=== PATIENT | female | born 1965 | race Caucasian/White ===

== ENCOUNTER 2016-12-28 15:24 | Emergency (ER) | payer MEDICAID, MEDICARE ==
[~2016-12-28] VITALS: Ht 165.1 cm; Wt 87.0 kg
[~2016-12-28 15:24] MED LIST: ASPI81TA82 PO; BENZ1TAB; CLOZ100T3; CLOZ200T PO; IBUP800T23 PO; LAMI200T PO; LAMO100; LORA1TAB PO; OXYB5TAB PO; PALI234P IM; PARO30TA PO; SENN-29 PO; TAB-TAB PO; VENTAER INH; [UNRECOGNIZED DRUG - OTHER]
[2016-12-28 15:28] VITALS: BP 120/66; PULSE 116; RESP 15; TEMP 98.4; O2SAT 98
[2016-12-28 16:00] VITALS: BP 118/69; PULSE 110; RESP 20; O2SAT 97
[2016-12-28] MEDS ORDERED: CLOZ200T PO (16:02)
[2016-12-28] MEDS ORDERED: LORA1TAB12 PO (16:02)
[2016-12-28] MEDS ORDERED: METF500T PO (16:11)
[2016-12-28] MEDS ORDERED: MOBI7.5T PO (16:11)
[2016-12-28] MEDS ORDERED: FISHCAP4 PO (16:11)
[2016-12-28] MEDS ORDERED: METO25TA3 PO (16:11)
[2016-12-28] MEDS ORDERED: VENTAER INH (16:11)
[2016-12-28] MEDS ORDERED: ROPI.5 PO (16:11)
[2016-12-28] MEDS ORDERED: VITA100021 SL (16:11)
[2016-12-28] MEDS ORDERED: VITA1000 PO (16:11)
[2016-12-28] MEDS ORDERED: VIIB40TA PO (16:11)
[2016-12-28] MEDS ORDERED: ROSU1TAB6 PO (16:15)
--- NOTE | 2016-12-28 17:31 | PD ---
HPI Chief Complaint: Psychiatric Symptoms Time Seen by Provider: 16:30 Travel History International Travel<30 days: No Contact w/Intl Traveler<30days: No Traveled to known affect area: No History of Present Illness HPI Patient is a 51-year-old female presenting to the emergency department voluntarily due to suicidal ideations. Patient states that she wants to burn herself with cigarettes. She states that she is off her psychiatric medications for the last week due to her labwork not being evaluated soon enough. It appears that the authorization cannot go through due to the labwork not being resulted in time. Patient states that she's been off of her medications for. She states that she feels jumpy, scared, she has had visual and auditory hallucinations. The voices are not telling her to harm herself or anyone else. He denies any homicidal ideations. She has no physical complaints at this time. PFSH Past Medical History Bipolar Disorder: Yes Neurologic: Yes Psychiatric: Yes (BIPLOAR DISORDER ) ?: Not : 3 Para: 3 Past Surgical History AICD: No Arteriovenous Shunt: No Hysterectomy: No Insulin Pump: No Joint Replacement: No Pacemaker: No Social History Alcohol Use: No Tobacco Use: Yes (1-04/19 ppd) Substance Use: No Allergies-Medications (Allergen,Severity, Reaction): Coded Allergies: haloperidol (Unverified Allergy, Severe, CAUSES THE JITTERS, 12/28/16) Reported Meds & Prescriptions Reported Meds & Active Scripts Active Reported Rosuvastatin (Rosuvastatin Calcium) 10 Mg Tab 10 Mg PO DAILY Metoprolol Tartrate 25 Mg Tab 25 Mg PO BID Vitamin B-12 (Cyanocobalamin) 1,000 Mcg Subl 2,000 Mcg SL DAILY Mobic (Meloxicam) 7.5 Mg Tab 7.5 Mg PO QID Fish Oil + D3 (Fish Oil-Cholecalciferol) 1,200-1,000 Mg-Unit Cap 1 Cap PO DAILY Ventolin Hfa 18 GM Inh (Albuterol Sulfate) 90 Mcg/Act Aer 2 Puff INH Q4-6H PRN Vitamin D-1000 (Cholecalciferol) 1,000 Unit Tab 1,000 Units PO BID Viibryd (Vilazodone) 40 Mg Tab 40 Mg PO DAILY Requip (Ropinirole HCl) 0.5 Mg Tab 0.5 Mg PO HS Lorazepam 1 Mg Tab 1 Mg PO HS PRN Clozapine 200 Mg Tab 300 Mg PO HS Aspir-81 (Aspirin) 81 Mg Tab 81 Mg PO DAILY Multivitamin (Multivitamins) 1 Tab Tab 1 Tab PO DAILY Invega Sustenna (Paliperidone Palmitate) 234 Mg/1.5 Ml Inj 234 Mg IM MONTHLY *FOR INTRAMUSCULAR USE ONLY* Oxybutynin Chloride Er (Oxybutynin Chloride) 5 Mg Tab 5 Mg PO BID Benztropine Mesylate 2 Mg Tab Review of Systems Except as stated in HPI: all other systems reviewed are Neg Psychiatric: Positive: Suicidal Ideations, Mood Disorder Physical Exam Narrative GENERAL: Overweight, well-developed, alert female. Resting comfortably in no acute distress. SKIN: Warm and dry. HEAD: Atraumatic. Normocephalic. EYES: Pupils equal and round. No scleral icterus. No injection or drainage. ENT: No nasal bleeding or discharge. Mucous membranes pink and moist. NECK: Trachea midline. No JVD. CARDIOVASCULAR: Regular rate and rhythm. RESPIRATORY: No accessory muscle use. Clear to auscultation. Breath sounds equal bilaterally. GASTROINTESTINAL: Abdomen soft, non-tender, nondistended. Hepatic and splenic margins not palpable. MUSCULOSKELETAL: Extremities without clubbing, cyanosis, or edema. No obvious deformities. NEUROLOGICAL: Awake and alert. No obvious cranial nerve deficits. Motor grossly within normal limits. Five out of 5 muscle strength in the arms and legs. Normal speech. PSYCHIATRIC: Appropriate mood and affect; insight and judgment normal. Data Data Last Documented VS Vital Signs Date Time Temp Pulse Resp B/P (MAP) Pulse Ox O2 Delivery O2 Flow Rate FiO2 12/28/16 18:38 91 18 132/60 (84) 95 Room Air 12/28/16 15:28 98.4 Orders Orders Complete Blood Count With Diff (12/28/16 16:29) Comprehensive Metabolic Panel (12/28/16 16:29) Urinalysis - C+S If Indicated (12/28/16 16:29) Psych Screen (12/28/16 16:29) Drug Screen, Random Urine (12/28/16 16:29) Diet Regular Basic (12/28/16 Dinner) Urine Culture (12/28/16 18:45) Potassium Chloride (Kcl) (12/28/16 20:45) Labs Laboratory Tests Test 12/28/16 18:45 12/28/16 19:05 Urine Color LIGHT-YELLOW Urine Turbidity HAZY Urine pH 5.5 Urine Specific [place] 1.004 Urine Protein NEG mg/dL Urine Glucose (UA) NEG mg/dL Urine Ketones NEG mg/dL Urine Occult Blood NEG Urine Nitrite NEG Urine Bilirubin NEG Urine Urobilinogen LESS THAN 2.0 MG/DL Urine Leukocyte Esterase NEG Urine WBC 1 /hpf Urine Squamous Epithelial Cells 11 /hpf Urine Transitional Epithelial Cells <1 /hpf Urine Bacteria MOD /hpf Microscopic Urinalysis Comment CULTURE INDICATED Urine Opiates Screen NEG Urine Barbiturates Screen NEG Urine Amphetamines Screen NEG Urine Benzodiazepines Screen NEG Urine Cocaine Screen NEG Urine Cannabinoids Screen NEG White Blood Count 9.8 TH/MM3 Red Blood Count 4.84 MIL/MM3 Hemoglobin 14.5 GM/DL Hematocrit 43.1 % Mean Corpuscular Volume 89.1 FL Mean Corpuscular Hemoglobin 30.0 PG Mean Corpuscular Hemoglobin Concent 33.6 % Red Cell Distribution Width 13.5 % Platelet Count 213 TH/MM3 Mean Platelet Volume 8.0 FL Neutrophils (%) (Auto) 61.1 % Lymphocytes (%) (Auto) 32.2 % Monocytes (%) (Auto) 6.2 % Eosinophils (%) (Auto) 0.1 % Basophils (%) (Auto) 0.4 % Neutrophils # (Auto) 6.0 TH/MM3 Lymphocytes # (Auto) 3.2 TH/MM3 Monocytes # (Auto) 0.6 TH/MM3 Eosinophils # (Auto) 0.0 TH/MM3 Basophils # (Auto) 0.0 TH/MM3 CBC Comment DIFF FINAL Differential Comment Blood Urea Nitrogen 5 MG/DL Creatinine 0.97 MG/DL Random Glucose 168 MG/DL Total Protein 7.3 GM/DL Albumin 3.4 GM/DL Calcium Level 9.2 MG/DL Alkaline Phosphatase 110 U/L Aspartate Amino Transf (AST/SGOT) 12 U/L Alanine Aminotransferase (ALT/SGPT) 21 U/L Total Bilirubin 0.3 MG/DL Sodium Level 141 MEQ/L Potassium Level 3.2 MEQ/L Chloride Level 108 MEQ/L Carbon Dioxide Level 23.4 MEQ/L Anion Gap 10 MEQ/L Estimat Glomerular Filtration Rate 61 ML/MIN MDM Medical Decision Making Medical Screen Exam Complete: Yes Emergency Medical Condition: Yes Interpretation(s) Laboratory Tests Test 12/28/16 18:45 12/28/16 19:05 Urine Color LIGHT-YELLOW Urine Turbidity HAZY Urine pH 5.5 Urine Specific [place] 1.004 Urine Protein NEG mg/dL Urine Glucose (UA) NEG mg/dL Urine Ketones NEG mg/dL Urine Occult Blood NEG Urine Nitrite NEG Urine Bilirubin NEG Urine Urobilinogen LESS THAN 2.0 MG/DL Urine Leukocyte Esterase NEG Urine WBC 1 /hpf Urine Squamous Epithelial Cells 11 /hpf Urine Transitional Epithelial Cells <1 /hpf Urine Bacteria MOD /hpf Microscopic Urinalysis Comment CULTURE INDICATED Urine Opiates Screen NEG Urine Barbiturates Screen NEG Urine Amphetamines Screen NEG Urine Benzodiazepines Screen NEG Urine Cocaine Screen NEG Urine Cannabinoids Screen NEG White Blood Count 9.8 TH/MM3 Red Blood Count 4.84 MIL/MM3 Hemoglobin 14.5 GM/DL Hematocrit 43.1 % Mean Corpuscular Volume 89.1 FL Mean Corpuscular Hemoglobin 30.0 PG Mean Corpuscular Hemoglobin Concent 33.6 % Red Cell Distribution Width 13.5 % Platelet Count 213 TH/MM3 Mean Platelet Volume 8.0 FL Neutrophils (%) (Auto) 61.1 % Lymphocytes (%) (Auto) 32.2 % Monocytes (%) (Auto) 6.2 % Eosinophils (%) (Auto) 0.1 % Basophils (%) (Auto) 0.4 % Neutrophils # (Auto) 6.0 TH/MM3 Lymphocytes # (Auto) 3.2 TH/MM3 Monocytes # (Auto) 0.6 TH/MM3 Eosinophils # (Auto) 0.0 TH/MM3 Basophils # (Auto) 0.0 TH/MM3 CBC Comment DIFF FINAL Differential Comment Blood Urea Nitrogen 5 MG/DL Creatinine 0.97 MG/DL Random Glucose 168 MG/DL Total Protein 7.3 GM/DL Albumin 3.4 GM/DL Calcium Level 9.2 MG/DL Alkaline Phosphatase 110 U/L Aspartate Amino Transf (AST/SGOT) 12 U/L Alanine Aminotransferase (ALT/SGPT) 21 U/L Total Bilirubin 0.3 MG/DL Sodium Level 141 MEQ/L Potassium Level 3.2 MEQ/L Chloride Level 108 MEQ/L Carbon Dioxide Level 23.4 MEQ/L Anion Gap 10 MEQ/L Estimat Glomerular Filtration Rate 61 ML/MIN Vital Signs Date Time Temp Pulse Resp B/P (MAP) Pulse Ox O2 Delivery O2 Flow Rate FiO2 12/28/16 16:00 110 20 118/69 (85) 97 Room Air 12/28/16 15:28 98.4 116 15 120/66 (69) 98 Differential Diagnosis Mood disorder versus substance abuse versus suicidal ideations versus other Narrative Course Patient is a 51-year-old female presented to them or department due to suicidal ideations secondary to auditory hallucinations. Patient has been compliant with psychiatric medications. She states that she does not want to harm herself but the voices are telling her to do so. Patient is appropriate, cooperative. Mental health screening discussed with the patient. Psychiatric screen ordered. Labs reviewed, and potassium 3.3, or replacement ordered. Urinalysis has reflux culture pending, patient has no urinary symptoms. We'll defer treatment for culture results. Patient is medically cleared for psychiatric evaluation at this time. Diagnosis Primary Impression: Medical clearance for psychiatric admission Additional Impression: Hypokalemia Condition: Stable Marjorie Beebe Dec 28, 2016 17:31
[2016-12-28 18:38] VITALS: BP 132/60; PULSE 91; RESP 18; O2SAT 95
[2016-12-28 20:09] LABS: BASOPHIL % 0.4 % (0.0-2.0); EOSINOPHIL % 0.1 % (0.0-4.0); HEMATOCRIT 43.1 % (35.0-46.0); HEMO FLAGS DIFF FINAL; LYMPH % 32.2 % (9.0-44.0); LYMPHOCYTE # 3.2 TH/MM3 (1.0-4.8); MEAN CELL VOLUME 89.1 FL (80.0-100.0); MEAN CORPUSCULAR HGB CONC 33.6 % (32.0-36.0); MONO % 6.2 % (0.0-8.0); NEUT % 61.1 % (16.0-70.0); PLATELET COUNT 213 TH/MM3 (150-450); RED BLOOD COUNT 4.84 MIL/MM3 (4.00-5.30); RED CELL DISTRIBUTION WIDTH 13.5 % (11.6-17.2); WHITE BLOOD COUNT 9.8 TH/MM3 (4.0-11.0)
[2016-12-28 20:30] LABS: ANION GAP 10 MEQ/L (5-15); AST (GOT) 12 U/L (15-37); BICARBONATE 23.4 MEQ/L (21.0-32.0); BLOOD UREA NITROGEN 5 MG/DL (7-18); CHLORIDE 108 MEQ/L (98-107); GLOMERULAR FILTRATION RATE 61 ML/MIN (>89); POTASSIUM 3.2 MEQ/L (3.5-5.1); SODIUM (NA) 141 MEQ/L (136-145)
[2016-12-28 20:31] LABS: ALT (GPT) 21 U/L (10-53)
[2016-12-28 20:31] LABS: BACTERIA, URINE MOD /hpf; BLOOD, URINE NEG (NEG); GLUCOSE,URINE NEG (NEG); KETONE, URINE NEG (NEG); NITRITE,URINE NEG (NEG); PH, URINE 5.5 (5.0-8.5); SQUAMOUS EPITHELIAL CELL URINE 11 /hpf (0-5); TRANSITIONAL EPI CELLS, URINE <1 /hpf; URINE COLOR LIGHT-YELLOW (YELLW/STRAW)
[2016-12-28 20:32] LABS: COMMENT (UR) CULTURE INDICATED; CULTURE IF INDICATED CULTURE INDICATED
[2016-12-28 20:34] LABS: ALKALINE PHOSPHATASE 110 U/L (45-117); TOTAL BILIRUBIN ADULT 0.3 MG/DL (0.2-1.0)
[2016-12-28] MEDS ORDERED: POTASSIUM CHLORIDE 20 MEQ CONTROLLED RELEASE TAB PO ONE (20:45)
[2016-12-28] MEDS ORDERED: cloZAPine 100 MG TAB PO ONE (22:00)
[2016-12-29 02:26] VITALS: BP 114/69; PULSE 101; RESP 18; O2SAT 97
[2016-12-29 11:07] VITALS: BP 152/71; PULSE 113; RESP 18; O2SAT 97
--- NOTE | 2016-12-29 11:57 | PD ---
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 Patient apparently has a significant history of schizophrenia and has been off her closet until recently due to a lack of lab work. (In order to be prescribed closet real, the patient needs periodic but frequent lab work.) Patient has been observed and evaluated overnight, on a voluntary status. This morning she is reporting no suicidal or homicidal ideation, plan or intent. She denies any psychotic symptoms and her cognition is intact. She is very pleasant and cooperative and calm. She is verbally tan for safety and she is competent to do so. She would like to go home and this physician finds inadequate reason to [place] act her or involuntarily hospitalize her. She can follow up at [facility] for her medicines. [facility] Past Medical History Bipolar Disorder: Yes Neurologic: Yes Psychiatric: Yes (BIPLOAR DISORDER ) ?: Not : 3 Para: 3 Past Surgical History AICD: No Arteriovenous Shunt: No Hysterectomy: No Insulin Pump: No Joint Replacement: No Pacemaker: No Psychiatric History Psychiatric History Hx Psychiatric Treatment: [facility] – [place], [place] History of Inpatient Treatment: Yes Guns or firearms in home: No Social History Hx Alcohol Use: No Hx Tobacco Use: Yes (1-1/2 ppd) Hx Substance Use: No Substance Use Type: Nicotine/Cigarettes Other Substances Used: Denied Hx of Substance Use Treatment: No Allergies-Medications (Allergen,Severity, Reaction): Coded Allergies: haloperidol (Unverified Allergy, Severe, CAUSES THE JITTERS, 12/28/16) Reported Meds & Prescriptions Reported Meds & Active Scripts Active Reported Rosuvastatin (Rosuvastatin Calcium) 10 Mg Tab 10 Mg PO DAILY Metoprolol Tartrate 25 Mg Tab 25 Mg PO BID Vitamin B-12 (Cyanocobalamin) 1,000 Mcg Subl 2,000 Mcg SL DAILY Mobic (Meloxicam) 7.5 Mg Tab 7.5 Mg PO QID Fish Oil + D3 (Fish Oil-Cholecalciferol) 1,200-1,000 Mg-Unit Cap 1 Cap PO DAILY Ventolin Hfa 18 GM Inh (Albuterol Sulfate) 90 Mcg/Act Aer 2 Puff INH Q4-6H PRN Vitamin D-1000 (Cholecalciferol) 1,000 Unit Tab 1,000 Units PO BID Viibryd (Vilazodone) 40 Mg Tab 40 Mg PO DAILY Requip (Ropinirole HCl) 0.5 Mg Tab 0.5 Mg PO HS Lorazepam 1 Mg Tab 1 Mg PO HS PRN Clozapine 200 Mg Tab 300 Mg PO HS Aspir-81 (Aspirin) 81 Mg Tab 81 Mg PO DAILY Multivitamin (Multivitamins) 1 Tab Tab 1 Tab PO DAILY Invega Sustenna (Paliperidone Palmitate) 234 Mg/1.5 Ml Inj 234 Mg IM MONTHLY *FOR INTRAMUSCULAR USE ONLY* Oxybutynin Chloride Er (Oxybutynin Chloride) 5 Mg Tab 5 Mg PO BID Benztropine Mesylate 2 Mg Tab Review of Systems Except as stated in HPI: all other systems reviewed are Neg Exam Alert: Yes [place]: Person, Place, Date, Situation Mood: Calm Affect: Appropriate Speech: Clear, Logical Eye Contact: Normal Memory Intact: Immediate, Recent, Remote Insight/Judgement Adequate MDM Medical Decision Making Medical Record Reviewed: Yes Assessment/Plan Patient interviewed at bedside with nurseZheng. Chart reviewed and case discussed with nurse. Patient has the ability and willingness to return to [facility] for medications. She is verbally tan for safety. She is not cognitively impaired or psychotic at this time. Therefore she is competent to make decisions on her own behalf. Once again, she denies any suicidal or homicidal ideation, plan or intent. Orders Orders Complete Blood Count With Diff (12/28/16 16:29) Comprehensive Metabolic Panel (12/28/16 16:29) Urinalysis - C+S If Indicated (12/28/16 16:29) Psych Screen (12/28/16 16:29) Drug Screen, Random Urine (12/28/16 16:29) Diet Regular Basic (12/28/16 Dinner) Urine Culture (12/28/16 18:45) Potassium Chloride (Kcl) (12/28/16 20:45) Clozapine (Clozaril) (12/28/16 22:00) Diet Regular Basic (12/29/16 Breakfast) Diet Regular Basic (12/29/16 Lunch) Results Vital Signs Date Time Temp Pulse Resp B/P (MAP) Pulse Ox O2 Delivery O2 Flow Rate FiO2 12/29/16 11:07 113 18 152/71 (98) 97 Room Air 12/29/16 02:26 101 18 114/69 (84) 97 Room Air 12/28/16 18:38 91 18 132/60 (84) 95 Room Air 12/28/16 16:00 110 20 118/69 (85) 97 Room Air 12/28/16 15:28 98.4 116 15 120/66 (84) 98 Laboratory Tests Test 12/28/16 18:45 12/28/16 19:05 Urine Color LIGHT-YELLOW Urine Turbidity HAZY Urine pH 5.5 Urine Specific [place] 1.004 Urine Protein NEG Urine Glucose (UA) NEG Urine Ketones NEG Urine Occult Blood NEG Urine Nitrite NEG Urine Bilirubin NEG Urine Urobilinogen LESS THAN 2.0 Urine Leukocyte Esterase NEG Urine WBC 1 Urine Squamous Epithelial Cells 11 Urine Transitional Epithelial Cells <1 Urine Bacteria MOD Microscopic Urinalysis Comment CULTURE INDICATED Urine Opiates Screen NEG Urine Barbiturates Screen NEG Urine Amphetamines Screen NEG Urine Benzodiazepines Screen NEG Urine Cocaine Screen NEG Urine Cannabinoids Screen NEG White Blood Count 9.8 Red Blood Count 4.84 Hemoglobin 14.5 Hematocrit 43.1 Mean Corpuscular Volume 89.1 Mean Corpuscular Hemoglobin 30.0 Mean Corpuscular Hemoglobin Concent 33.6 Red Cell Distribution Width 13.5 Platelet Count 213 Mean Platelet Volume 8.0 Neutrophils (%) (Auto) 61.1 Lymphocytes (%) (Auto) 32.2 Monocytes (%) (Auto) 6.2 Eosinophils (%) (Auto) 0.1 Basophils (%) (Auto) 0.4 Neutrophils # (Auto) 6.0 Lymphocytes # (Auto) 3.2 Monocytes # (Auto) 0.6 Eosinophils # (Auto) 0.0 Basophils # (Auto) 0.0 CBC Comment DIFF FINAL Differential Comment Blood Urea Nitrogen 5 Creatinine 0.97 Random Glucose 168 Total Protein 7.3 Albumin 3.4 Calcium Level 9.2 Alkaline Phosphatase 110 Aspartate Amino Transf (AST/SGOT) 12 Alanine Aminotransferase (ALT/SGPT) 21 Total Bilirubin 0.3 Sodium Level 141 Potassium Level 3.2 Chloride Level 108 Carbon Dioxide Level 23.4 Anion Gap 10 Estimat Glomerular Filtration Rate 61 Date/Time Source Procedure Growth Status 12/28/16 18:45 Urine Clean Catch Urine Culture Pending Received Diagnosis Primary Impression: Schizophrenia, paranoid type Condition: Stable Korey Gerardo MD Dec 29, 2016 11:57
--- NOTE | 2016-12-29 12:32 | PD ---
Physical Exam Date Seen by Provider: Dec 29, 2016 Narrative For full history of physical examination patient please see previous provider's notes. Data Data Last Documented VS Vital Signs Date Time Temp Pulse Resp B/P (MAP) Pulse Ox O2 Delivery O2 Flow Rate FiO2 12/29/16 11:07 113 18 152/71 (98) 97 Room Air 12/28/16 15:28 98.4 Orders Orders Complete Blood Count With Diff (12/28/16 16:29) Comprehensive Metabolic Panel (12/28/16 16:29) Urinalysis - C+S If Indicated (12/28/16 16:29) Psych Screen (12/28/16 16:29) Drug Screen, Random Urine (12/28/16 16:29) Diet Regular Basic (12/28/16 Dinner) Urine Culture (12/28/16 18:45) Potassium Chloride (Kcl) (12/28/16 20:45) Clozapine (Clozaril) (12/28/16 22:00) Diet Regular Basic (12/29/16 Breakfast) Diet Regular Basic (12/29/16 Lunch) Labs Laboratory Tests Test 12/28/16 18:45 12/28/16 19:05 Urine Color LIGHT-YELLOW Urine Turbidity HAZY Urine pH 5.5 Urine Specific [place] 1.004 Urine Protein NEG mg/dL Urine Glucose (UA) NEG mg/dL Urine Ketones NEG mg/dL Urine Occult Blood NEG Urine Nitrite NEG Urine Bilirubin NEG Urine Urobilinogen LESS THAN 2.0 MG/DL Urine Leukocyte Esterase NEG Urine WBC 1 /hpf Urine Squamous Epithelial Cells 11 /hpf Urine Transitional Epithelial Cells <1 /hpf Urine Bacteria MOD /hpf Microscopic Urinalysis Comment CULTURE INDICATED Urine Opiates Screen NEG Urine Barbiturates Screen NEG Urine Amphetamines Screen NEG Urine Benzodiazepines Screen NEG Urine Cocaine Screen NEG Urine Cannabinoids Screen NEG White Blood Count 9.8 TH/MM3 Red Blood Count 4.84 MIL/MM3 Hemoglobin 14.5 GM/DL Hematocrit 43.1 % Mean Corpuscular Volume 89.1 FL Mean Corpuscular Hemoglobin 30.0 PG Mean Corpuscular Hemoglobin Concent 33.6 % Red Cell Distribution Width 13.5 % Platelet Count 213 TH/MM3 Mean Platelet Volume 8.0 FL Neutrophils (%) (Auto) 61.1 % Lymphocytes (%) (Auto) 32.2 % Monocytes (%) (Auto) 6.2 % Eosinophils (%) (Auto) 0.1 % Basophils (%) (Auto) 0.4 % Neutrophils # (Auto) 6.0 TH/MM3 Lymphocytes # (Auto) 3.2 TH/MM3 Monocytes # (Auto) 0.6 TH/MM3 Eosinophils # (Auto) 0.0 TH/MM3 Basophils # (Auto) 0.0 TH/MM3 CBC Comment DIFF FINAL Differential Comment Blood Urea Nitrogen 5 MG/DL Creatinine 0.97 MG/DL Random Glucose 168 MG/DL Total Protein 7.3 GM/DL Albumin 3.4 GM/DL Calcium Level 9.2 MG/DL Alkaline Phosphatase 110 U/L Aspartate Amino Transf (AST/SGOT) 12 U/L Alanine Aminotransferase (ALT/SGPT) 21 U/L Total Bilirubin 0.3 MG/DL Sodium Level 141 MEQ/L Potassium Level 3.2 MEQ/L Chloride Level 108 MEQ/L Carbon Dioxide Level 23.4 MEQ/L Anion Gap 10 MEQ/L Estimat Glomerular Filtration Rate 61 ML/MIN MDM Medical Record Reviewed: Yes Supervised Visit with MARISA: No Narrative Course Patient presented for psychiatric evaluation secondary to being off of her medications. Patient was seen and evaluated, medically cleared. She was in seen and evaluated by psychiatrist. Patient's medications were resumed. She is to follow-up as outpatient. She was deemed safe for discharge by psychiatrist. Patient is stable for discharge. Diagnosis Primary Impression: Schizophrenia, paranoid type Referrals: [facility] (Out patient) call for appointment Patient Instructions: General Instructions, Psychotic Disorder (ED) Departure Forms: Tests/Procedures Disposition: 01 DISCHARGE HOME Condition: Stable Marjorie Beebe Dec 29, 2016 12:31
== END 2016-12-29 13:14 | disposition home or self-care (01) ==
LOC: NEPJ 15:24
DX: F20.0 Paranoid schizophrenia (principal); E87.6 Hypokalemia
CPT/HCPCS: 80053; 80307; 81001; 85025; 87086; 99284

== ENCOUNTER 2017-03-05 08:00 | Emergency (ER) | payer MEDICARE, MEDICAID ==
[~2017-03-05] VITALS: Ht 165.1 cm; Wt 89.5 kg
[~2017-03-05 08:00] MED LIST changes: -CLOZ100T3; +FISHCAP4 PO; -IBUP800T23 PO; -LAMI200T PO; -LAMO100; -LORA1TAB PO; +LORA1TAB12 PO; +METO25TA3 PO; +MOBI7.5T PO; -PARO30TA PO; +ROPI.5 PO; +ROSU1TAB6 PO; -SENN-29 PO; +VIIB40TA PO; +VITA1000 PO; +VITA100021 SL; -[UNRECOGNIZED DRUG - OTHER]
[2017-03-05 08:03] VITALS: BP 124/73; PULSE 127; RESP 18; TEMP 98.1; O2SAT 97
[2017-03-05] MEDS ORDERED: OLAN20TA PO (08:25)
[2017-03-05] MEDS ORDERED: PALI234P IM (08:25)
[2017-03-05] MEDS ORDERED: multivitamin (08:25)
[2017-03-05] MEDS ORDERED: TRAZ100T10 PO (08:25)
[2017-03-05] MEDS ORDERED: HYDR-3580 PO (08:25)
[2017-03-05] MEDS ORDERED: VIST25CA PO (08:30)
--- NOTE | 2017-03-05 08:30 | PD ---
HPI Chief Complaint: Anxiety Time Seen by Provider: 08:18 Travel History International Travel<30 days: No Contact w/Intl Traveler<30days: No Traveled to known affect area: No History of Present Illness HPI 52-year-old female complains of insomnia. Patient states that she has been unable to sleep for the last 8 days. Patient contacted her physician and was given prescription for trazodone. Patient states that she had persistent insomnia despite taking trazodone. Patient denies any headache. Patient denies any chest pain or shortness of breath. Patient denies abdominal pain. Patient denies any focal weakness or numbness of extremity. Patient has been taking oxycodone for chronic pain. Patient has history of schizophrenia, bipolar disorder. PFSH Past Medical History Hx Anticoagulant Therapy: No Asthma: No Autoimmune Disease: No Blood Disorders: No Bipolar Disorder: Yes Anxiety: No Depression: No Cancer: No Cardiovascular Problems: No Chemotherapy: No COPD: No Cerebrovascular Accident: No Diabetes: No Diminished Hearing: No Endocrine: No Gastrointestinal Disorders: No Genitourinary: No Headaches: No Immune Disorder: No Musculoskeletal: No Neurologic: Yes Psychiatric: Yes (BIPLOAR DISORDER ) Reproductive: No Respiratory: No Migraines: No Radiation Therapy: No Seizures: No Sleep Apnea: No ?: Not Menopausal: Yes : 3 Para: 3 Past Surgical History AICD: No Arteriovenous Shunt: No Hysterectomy: No Insulin Pump: No Joint Replacement: No Pacemaker: No Other Surgery: No Social History Alcohol Use: No Tobacco Use: Yes (1-/2 ppd) Substance Use: No Allergies-Medications (Allergen,Severity, Reaction): Coded Allergies: haloperidol (Unverified Allergy, Severe, CAUSES THE JITTERS, 12/28/16) Reported Meds & Prescriptions Reported Meds & Active Scripts Active Review of Systems General / Constitutional: No: Fever Eyes: No: Visual changes HENT: No: Headaches Cardiovascular: No: Chest Pain or Discomfort Respiratory: No: Shortness of Breath Gastrointestinal: No: Abdominal Pain Genitourinary: No: Dysuria Musculoskeletal: No: Pain Skin: No Rash Neurologic: No: Weakness Psychiatric: No: Depression Endocrine: No: Polydipsia Hematologic/Lymphatic: No: Easy Bruising Physical Exam Narrative GENERAL: Well-nourished, well-developed patient. SKIN: Focused skin assessment warm/dry. HEAD: Normocephalic. EYES: No scleral icterus. No injection or drainage. NECK: Supple, trachea midline. No JVD or lymphadenopathy. CARDIOVASCULAR: Regular rate and rhythm without murmurs, gallops, or rubs. RESPIRATORY: Breath sounds equal bilaterally. No accessory muscle use. GASTROINTESTINAL: Abdomen soft, non-tender, nondistended. MUSCULOSKELETAL: No cyanosis, or edema. BACK: Nontender without obvious deformity. No CVA tenderness. Neurologic exam normal. Data Data Last Documented VS Vital Signs Date Time Temp Pulse Resp B/P (MAP) Pulse Ox O2 Delivery O2 Flow Rate FiO2 03/05/17 08:03 98.1 127 18 124/73 (90) 97 Room Air MDM Medical Decision Making Medical Screen Exam Complete: Yes Emergency Medical Condition: Yes Differential Diagnosis Differential diagnosis including insomnia, anxiety, medication withdrawal. Narrative Course 52-year-old female with insomnia. History of schizophrenia and bipolar disorder. Patient's on trazodone. Diagnosis Primary Impression: Insomnia Qualified Codes: G47.00 - Insomnia, unspecified Patient Instructions: General Instructions Additional Instructions: Vistaril as needed. Follow-up with personal physician. Med/Other Pt SpecificInfo: Prescription(s) given Scripts Hydroxyzine Pamoate (Vistaril) 25 Mg Cap 25 MG PO TID Y for AGITATION, #21 CAP 0 Refills Prov: Juan Stover MD 03/05/17 Disposition: 01 DISCHARGE HOME Condition: Stable Juan Stover MD Mar 05, 2017 08:30
== END 2017-03-05 09:07 | disposition home or self-care (01) ==
LOC: NEPE 08:00
DX: G47.00 Insomnia, unspecified (principal); F17.200 Nicotine dependence, unspecified, uncomplicated; Z86.59 Personal history of other mental and behavioral disorders; Z87.39 Personal history of other diseases of the musculoskeletal system and connective tissue
CPT/HCPCS: 99283

== ENCOUNTER 2017-03-05 08:37 | Emergency (ER) | payer MEDICARE, MEDICAID ==
[~2017-03-05] VITALS: Ht 165.1 cm; Wt 90.0 kg
[~2017-03-05 08:37] MED LIST changes: +HYDR-3580 PO; +OLAN20TA PO; +TRAZ100T10 PO; +VIST25CA PO; +multivitamin
[2017-03-05 08:41] VITALS: BP 124/75; PULSE 128; RESP 18; TEMP 98; O2SAT 98
[2017-03-05 09:40] VITALS: PULSE 90; PULSE 92; RESP 16
--- NOTE | 2017-03-05 10:00 | PD ---
HPI . Insomnia Chief Complaint: Anxiety Time Seen by Provider: 09:49 Travel History International Travel<30 days: No Contact w/Intl Traveler<30days: No Traveled to known affect area: No History of Present Illness HPI 52-year-old female presents emergency department for evaluation of insomnia. Patient has extensive psychiatric history. Patient has seen her psychiatrist multiple times within the last couple weeks changing her medication. Patient was initially very upset that she was taken off benzodiazepines. She states she can't sleep. She was started on trazodone which she said is not helping. She first took trazodone last night and came to the emergency department this morning. Patient looks well-nourished well-developed without any dark pads underneath her eyes or bloodshot eyes. Patient is conversing fluently. Patient states she is sorry she told triage she was having delusions. She said she is not having any delusions or hallucinations but just needs help to sleep. Patient denies any chest pain, shortness breath or fevers, chills, malaise, nausea, vomiting, abdominal pain. Patient denies any homicidal suicidal ideation. Patient denies and is not experiencing any hallucinations or delusions. PFSH Past Medical History Hx Anticoagulant Therapy: No Asthma: No Autoimmune Disease: No Blood Disorders: No Bipolar Disorder: Yes Anxiety: Yes Depression: Yes Cancer: No Cardiovascular Problems: No Chemotherapy: No COPD: No Cerebrovascular Accident: No Diabetes: No Diminished Hearing: No Endocrine: No Gastrointestinal Disorders: No Genitourinary: No Headaches: No Immune Disorder: No Musculoskeletal: No Neurologic: Yes Psychiatric: Yes (schizoaffective d/o, bipolar d/o) Reproductive: No Respiratory: No Migraines: No Radiation Therapy: No Schizophrenia: Yes Seizures: No Sleep Apnea: No Tetanus Vaccination: Unknown Influenza Vaccination: No ?: Not LMP: 3 years ago Menopausal: Yes : 3 Para: 3 Past Surgical History Surgical History: No Previous Surgery AICD: No Arteriovenous Shunt: No Hysterectomy: No Insulin Pump: No Joint Replacement: No Pacemaker: No Other Surgery: No Social History Alcohol Use: No Tobacco Use: Yes (1 ppd cigarettes) Substance Use: No Allergies-Medications (Allergen,Severity, Reaction): Coded Allergies: haloperidol (Unverified Allergy, Severe, CAUSES THE JITTERS, 12/28/16) Reported Meds & Prescriptions Reported Meds & Active Scripts Active Vistaril (Hydroxyzine Pamoate) 25 Mg Cap 25 Mg PO TID PRN Reported Hydrocodone-Acetaminophen 7.5 Mg-325 Mg Tab 1 Tab PO Q4H PRN [multivitamin] Trazodone (Trazodone HCl) 100 Mg Tablet 100 Mg PO HS Invega Sustenna Inj (Paliperidone Palmitate) 234 Mg/1.5 Ml Inj 234 Mg IM Q28D Olanzapine 20 Mg Tab 20 Mg PO HS Review of Systems Except as stated in HPI: all other systems reviewed are Neg Physical Exam Narrative GENERAL: Well-nourished, well-developed 52-year-old female patient in no acute distress. Nontoxic-appearing. SKIN: Focused skin assessment warm/dry. HEAD: Normocephalic. Atraumatic. EYES: No scleral icterus. No injection or drainage. NECK: Supple, trachea midline. No JVD or lymphadenopathy. CARDIOVASCULAR: Regular rate and rhythm without murmurs, gallops, or rubs. RESPIRATORY: Breath sounds equal bilaterally. No accessory muscle use. GASTROINTESTINAL: Abdomen soft, non-tender, nondistended. MUSCULOSKELETAL: No cyanosis, or edema. BACK: Nontender without obvious deformity. No CVA tenderness. Data Data Last Documented VS Vital Signs Date Time Temp Pulse Resp B/P (MAP) Pulse Ox O2 Delivery O2 Flow Rate FiO2 03/05/17 09:40 90 16 03/05/17 08:41 98.0 98 Room Air MDM Medical Decision Making Medical Screen Exam Complete: Yes Emergency Medical Condition: Yes Differential Diagnosis Differential diagnoses include but not limited to insomnia, fatigue, restlessness, medication regimen change Narrative Course 52-year-old female presents emergency department for evaluation of insomnia. Patient's medication was recently changed by her psychiatrist. Patient took trazodone last night but was unable to achieve adequate sleep. Patient reported the emergency department this morning to obtain help for insomnia and she apologized for telling triage that she was having delusions and hallucinations stating that's not true but she just wants help. Patient denies any homicidal or suicidal ideations. Patient denies any physiological complaints outside of healing tired at this time. Patient states she is given a home take her trazodone again tonight and that the environment to sleep, making them dark and quiet allowing herself to try to get some rest. Patient states she will come back if she feels like the sleep is inadequate tonight or she will follow up with her psychiatrist. Patient will be discharged home at this time. Patient states she has a mental health counselor that is on-call 08 11 and she will call them if there is any other concerns. Diagnosis Primary Impression: Insomnia Qualified Codes: G47.00 - Insomnia, unspecified Referrals: Psychiatrist Patient Instructions: General Instructions, Insomnia (ED) Additional Instructions: Please return to emergency department if your symptoms return or worsen. Follow up with your psychiatrist Take medications as prescribed. Disposition: 01 DISCHARGE HOME Condition: Stable Danielle Ramos Alecia DIAMOND Mar 05, 2017 10:00
== END 2017-03-05 10:15 | disposition home or self-care (01) ==
LOC: NEPJ 08:37
DX: G47.00 Insomnia, unspecified (principal); F17.200 Nicotine dependence, unspecified, uncomplicated; Z86.59 Personal history of other mental and behavioral disorders; Z86.69 Personal history of other diseases of the nervous system and sense organs
CPT/HCPCS: 99282

== ENCOUNTER 2017-09-30 19:05 | Inpatient (IN) | payer MEDICARE, OTHER ==
[~2017-09-30 19:05] MED LIST changes: -ASPI81TA82 PO; -BENZ1TAB; -CLOZ200T PO; -FISHCAP4 PO; -LORA1TAB12 PO; -METO25TA3 PO; -MOBI7.5T PO; -OXYB5TAB PO; -ROPI.5 PO; -ROSU1TAB6 PO; -TAB-TAB PO; -VENTAER INH; -VIIB40TA PO; -VITA1000 PO; -VITA100021 SL
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
[2017-09-30] MEDS ORDERED: TETANUS/DIPHTHERIA TOXOID ADULT 0.5 ML VIAL IM ONE (19:30)
[2017-09-30 19:57] VITALS: BP 121/74; PULSE 115; RESP 18; TEMP 98.9; O2SAT 95
[2017-09-30 20:52] LABS: AUTOMATED NEUTROPHIL # 5.5 TH/MM3 (1.8-7.7); BASOPHIL % 0.4 % (0.0-2.0); EOSINOPHIL % 0.1 % (0.0-4.0); HEMATOCRIT 43.6 % (35.0-46.0); LYMPH % 39.8 % (9.0-44.0); LYMPHOCYTE # 4.1 TH/MM3 (1.0-4.8); MEAN CELL VOLUME 84.2 FL (80.0-100.0); MEAN CORPUSCULAR HGB CONC 34.4 % (32.0-36.0); MEAN PLATELET VOLUME 8.4 FL (7.0-11.0); MONO % 6.3 % (0.0-8.0); MONOCYTE # 0.7 TH/MM3 (0-0.9); NEUT % 53.4 % (16.0-70.0); PLATELET COUNT 248 TH/MM3 (150-450); RED BLOOD COUNT 5.18 MIL/MM3 (4.00-5.30); RED CELL DISTRIBUTION WIDTH 13.8 % (11.6-17.2); WHITE BLOOD COUNT 10.4 TH/MM3 (4.0-11.0)
[2017-09-30 21:13] LABS: ALBUMIN 3.4 GM/DL (3.4-5.0); AST (GOT) 17 U/L (15-37); BICARBONATE 23.5 MEQ/L (21.0-32.0); BLOOD UREA NITROGEN 9 MG/DL (7-18); CALCIUM 9.1 MG/DL (8.5-10.1); CHLORIDE 107 MEQ/L (98-107); CREATININE 1.07 MG/DL (0.50-1.00); GLOMERULAR FILTRATION RATE 54 ML/MIN (>89); GLUCOSE,RANDOM 140 MG/DL (74-106); SODIUM (NA) 142 MEQ/L (136-145)
[2017-09-30 21:14] LABS: ALT (GPT) 30 U/L (10-53)
[2017-09-30 21:24] LABS: ALKALINE PHOSPHATASE 176 U/L (45-117); TOTAL BILIRUBIN ADULT 0.4 MG/DL (0.2-1.0); TOTAL PROTEIN 7.7 GM/DL (6.4-8.2)
[2017-09-30 23:05] LABS: BACTERIA, URINE MANY /hpf; BILIRUBIN, URINE NEG (NEG); BLOOD, URINE NEG (NEG); GLUCOSE,URINE NEG (NEG); KETONE, URINE NEG (NEG); MUCUS URINE FEW /lpf (OCC); NITRITE,URINE POS (NEG); SQUAMOUS EPITHELIAL CELL URINE 3 /hpf (0-5); URINE COLOR Amber (YELLW/STRAW); URINE LEUKOCYTE ESTERASE MOD (NEG)
[2017-09-30 23:54] VITALS: BP 108/65; PULSE 107; RESP 17; TEMP 98.5; O2SAT 92
[2017-10-01 04:12] VITALS: BP 124/68; PULSE 105; RESP 18; TEMP 98.2; O2SAT 94
[2017-10-01] MEDS ORDERED: ROSU1TAB6 PO (05:39)
[2017-10-01] MEDS ORDERED: OXYB5TAB8 PO (05:39)
[2017-10-01] MEDS ORDERED: MELA5 PO (05:39)
[2017-10-01] MEDS ORDERED: VIIB40TA PO (05:39)
[2017-10-01] MEDS ORDERED: DOXE100C4 PO (05:39)
[2017-10-01] MEDS ORDERED: DOCU100C15 PO (05:39)
[2017-10-01] MEDS ORDERED: NITR1CAP36 PO (05:39)
[2017-10-01] MEDS ORDERED: PALI234P IM (05:42)
[2017-10-01] MEDS: NICOTINE 21 MG/24 HR PATCH T-DERMAL SCH (13:00)
[2017-10-01] MEDS ORDERED: LORazepam 2 MG/ML VIAL IM PRN ×2 (13:00)
[2017-10-01] MEDS: DOCUSATE SODIUM 100 MG CAP PO SCH (13:00)
[2017-10-01] MEDS ORDERED: ACETAMINOPHEN 325 MG TAB PO PRN (13:00)
[2017-10-01] MEDS ORDERED: ALUMINUM/MAGNESIUM/SIMETH 30 ML CUP PO PRN (13:00)
[2017-10-01] MEDS ORDERED: MAGNESIUM HYDROXIDE SUSP 30 ML CUP PO PRN (13:00)
[2017-10-01] MEDS ORDERED: PALIPERIDONE ER 3 MG TAB PO SCH (13:00)
[2017-10-01] MEDS ORDERED: LORazepam 0.5 MG TAB PO PRN (13:00)
[2017-10-01] MEDS: ATORVASTATIN 20 MG TAB PO SCH (13:00)
[2017-10-01] MEDS ORDERED: PALIPERIDONE PALMITATE 234 MG/1.5 ML SYRINGE IM SCH (13:00)
[2017-10-01] MEDS ORDERED: LORazepam 1 MG TAB PO PRN (13:00)
--- NOTE | 2017-10-01 13:17 | HHI.HP ---
Provisional Diagnosis Admission Date [place] I. Schizoaffective disorder, bipolar type [place] II. Deferred [place] III. UTI [place] IV. Multiple psychiatric hospitalizations, [place] V. 50 Certification of Person's Competence To Provide Express and Informed Consent I have personally examined Arabella Abdalla , a person being served at [facility] on, Oct 01, 2017 12:57. Express and informed consent means consent voluntarily given in writing, by a competent person, after sufficient explanation and disclosure of the subject matter involved to enable the person to make a knowing and willful decision without any element of force, fraud, deceit, duress, or other form of constraint or coercion. This person is 18 years of age or older, is not now known to be incompetent to consent to treatment with a guardian advocate, and does not have a health care surrogate or proxy currently making medical treatment decisions. I have found this person to be one of the following: [x] Competent to provide express and informed consent, as defined above, for voluntary admission to this facility and is competent to provide express and informed consent for treatment. He/she has the consistent capacity to make well reasoned, willful, and knowing decisions concerning his or her medical or mental health treatment. The person fully and consistently understands the purpose of the admission for examination/placement and is fully capable of personally exercising all rights assured under [place] Incompetent to provide express and informed consent to voluntary admission, and this is incompetent to provide express and informed consent to treatment. The person must be transferred to involuntary status and a petition for a guardian advocate filed with the Circuit Court. [] Refusing to provide express and informed consent to voluntary admission but is competent to provide express and informed consent for treatment. The person must be discharged or transferred to involuntary status. Form shall be completed within 24 hours of a person's arrival at the receiving facility and filed in the clinical record of each person: 1. Admitted on a voluntary basis 2. Permitted to provide express and informed consent to his/her own treatment 3. Allowed to transfer from involuntary to voluntary status 4. Prior to permitting a person to consent to his or her own treatment after having been previously found incompetent to consent to treatment. History of Present Illness Capacity: Has Capacity HPI The patient is 52-year-old woman, single, domiciled in [place], unemployed, supported by [facility], with psychiatric history of schizoaffective disorder, bipolar type, multiple psychiatric hospitalizations, last hospitalization was here at [place] in 2014, documentation review, outpatient care with Fact team, she is on Invega Sustenna 234 mg, date of last dose unknown , doxepin 100 mg at bedtime, melatonin 1 mg, 2 previous suicidal attempts 1 of them with a little lithium overdose that needed hemodialysis, no significant medical history, who presents under Blake act initiated by the [employer]. According to her paperwork the patient told someone at her assisted -living living facility that she wants to drowned in the ocean. She has been feeling this way for the past several days. She reports that she hears voices which tell her to kill herself. Symptoms are moderate, aggravated by auditory hallucinations with no relieving factors. She reports that she did burn her hand with cigarettes over the past few days but denies doing anything else to hurt herself. Her last tetanus vaccination is unknown. She denies any drug or alcohol use. She has no other complaints at this time. Collateral information from [facility], [address] [place] [id number] , was obtained. On my psychiatric evaluation I find a patient is calm, cooperative and who seems to be quite distressed. She says that she decided to come to the ER because for the last 2-3 days he has been hearing voices that has been increasing in intensity, severity, volume and frequency. She states that the voices are now very loud in her head "telling me to kill myself, to walk to the ocean and drawn myself". She says that she does not want to , she says that she was doing absolutely fine. She says that she was diagnosed with mental illness 22 years ago, she has been hospitalized over 20 times, but for the first time she is in a place that she like, with a medication regimen that is helping her, with the doctor "that is nice", "I was doing okay for the last years", but for no reason the voices returned. The patient reports that the voices are so loud that she "wanted to to put something in my Ears". She reports symptoms of depression, sadness, irritability, also anxiety in the context of the perceptual disturbances, but denies anhedonia, denies hopelessness, denies helplessness, denies worthlessness, denies suicidal and homicidal ideation, she denies visual and auditory hallucinations. The patient has a logical, coherent and relevant thought process, no paranoia, no loosening of associations, no ann, no disorganized behavior or speech are present during my evaluation. The patient denies the use of illegal drugs or alcohol. Review of Systems Constitutional: DENIES: Diaphoretic episodes, Fatigue, Fever, Weight gain, Weight loss, Chills, Dizziness, Change in appetite, Night Sweats Endocrine: DENIES: Abnorml menstrual pattern, Heat/cold intolerance, Polydipsia , Polyuria, Polyphagia Eyes: DENIES: Blurred vision, Diplopia, Eye inflammation, Eye pain, Vision loss , Photosensitivity, Double Vision Ears, nose, mouth, throat: DENIES: Tinnitus, Hearing loss, Vertigo, Nasal discharge, Oral lesions, Throat pain, Hoarseness, Ear Pain, Running Nose, Epistaxis, Sinus Pain, Toothache, Odynophagia Respiratory: DENIES: Apneas, Cough, Snoring, Wheezing, Hemoptysis, Sputum production, Shortness of breath Cardiovascular: DENIES: Chest pain, Palpitations, Syncope, Dyspnea on Exertion , PND, Lower Extremity Edema, Orthopnea, Claudication Gastrointestinal: DENIES: Abdominal pain, Black stools, Bloody stools, Constipation, Diarrhea, Nausea, Vomiting, Difficulty Swallowing, Anorexia Genitourinary: DENIES: Abnormal vaginal bleeding, Dysmenorrhea, Dyspareunia, Sexual dysfunction, Urinary frequency, Urinary incontinence, Urgency, Hematuria , Dysuria, Nocturia, Vaginal discharge Musculoskeletal: DENIES: Joint pain, Muscle aches, Stiffness, Joint Swelling, Back pain, Neck pain Integumentary: DENIES: Abnormal pigmentation, Pruritus, Rash, Nail changes, Breast masses, Breast skin changes, Nipple discharge Hematologic/lymphatic: DENIES: Bruising, Lymphadenopathy Immunologic/allergic: DENIES: Eczema, Urticaria Psychiatric: COMPLAINS OF: Depression, Hallucinations, DENIES: Anxiety, Confusion, Mood changes, Agitation, Suicidal Ideation, Homicidal Ideation, Delusions Substance Abuse History Drugs/Alcohol past 12 months She denies the use of drugs and alcohol Past Family Social History Coded Allergies: haloperidol (Unverified Allergy, Severe, CAUSES [employer]TER[employer], 12/28/16) Reported Medications Paliperidone Palmitate Inj (Invega Sustenna Inj) 234 Mg/1.5 Ml Inj, 234 MG IM Q28D for Schizophrenia, #1 VIAL 0 Refills 10/01/17 Docusate Sodium (Docusate Sodium) 100 Mg Cap, 100 MG PO DAILY for Prevent Constipation, #60 CAP 0 Refills 10/01/17 Doxepin (Doxepin) 100 Mg Cap, 100 MG PO HS, #30 CAP 0 Refills 10/01/17 Nitrofurantoin Macrocrystal (Nitrofurantoin Macrocrystal) 100 Mg Cap, 100 MG PO BID for Infection, CAP 0 Refills 10/01/17 Rosuvastatin (Rosuvastatin) 10 Mg Tab, 10 MG PO DAILY for Cholesterol Management , TAB 0 Refills 10/01/17 Oxybutynin (Ditropan) 5 Mg Tab, 10 MG PO BID for Urinary Symptom Managemen, #60 TAB 0 Refills 10/01/17 Melatonin (Melatonin) 5 Mg Tab, 1 MG PO HS for Provide Good Sleep, TAB 0 Refills 10/01/17 Discontinued Reported Medications Vilazodone (Viibryd) 40 Mg Tab, 40 MG PO DAILY for Control Depression, #30 TAB 0 Refills 10/01/17 Hydrocodone-Acetaminophen (Hydrocodone-Acetaminophen) 7.5 Mg-325 Mg Tab, 1 TAB PO Q4H Y for PAIN, TAB 0 Refills 03/05/17 [multivitamin] No Conflict Check 03/05/17 Trazodone (Trazodone) 100 Mg Tablet, 100 MG PO HS for Control Depression, #30 TAB 0 Refills 03/05/17 Paliperidone Palmitate Inj (Invega Sustenna Inj) 234 Mg/1.5 Ml Inj, 234 MG IM Q28D for Schizophrenia, #1 VIAL 0 Refills 03/05/17 Olanzapine (Olanzapine) 20 Mg Tab, 20 MG PO HS, #30 TAB 0 Refills 03/05/17 Discontinued Scripts Hydroxyzine Pamoate (Vistaril) 25 Mg Cap, 25 MG PO TID Y for AGITATION, #21 CAP 0 Refills Prov:Juan Stover MD 03/05/17 Current Medications Medications (Trade) Dose Ordered Sig/Catia Route Start Time Stop Time Status Last Admin (Colace) 100 mg DAILY PO 10/01/17 13:00 UNV (SINEquan) 100 mg HS PO 6/16/18 21:00 UNV (Melatonin) 1 mg HS PO 10/01/17 21:00 UNV (Ditropan) 10 mg BID PO 10/01/17 21:00 UNV Non-Formulary Medication 100 mg BID PO 10/01/17 21:00 UNV Non-Formulary Medication 10 mg DAILY PO 10/01/17 13:00 UNV Family Psych History No family psychiatric history Social History The patient was born and raised in [facility], she lives [facility], single, unemployed, supported by [employer], her highest level of education is some college Patient's Strengths (min. 2) Outpatient psychiatric care Physical Exam No tremors, no EPS, no catatonic symptoms, no stiffness, no withdrawal symptoms , no gait disturbance, no psychomotor agitation or retardation Vital Signs Vital Signs Date Time Temp Pulse Resp B/P (MAP) Pulse Ox O2 Delivery O2 Flow Rate FiO2 10/01/17 04:12 98.2 105 18 124/68 (86) 94 Room Air Lab Results Test 09/30/17 19:20 09/30/17 20:05 White Blood Count 10.4 TH/MM3 Red Blood Count 5.18 MIL/MM3 Hemoglobin 15.0 GM/DL Hematocrit 43.6 % Mean Corpuscular Volume 84.2 FL Mean Corpuscular Hemoglobin 29.0 PG Mean Corpuscular Hemoglobin Concent 34.4 % Red Cell Distribution Width 13.8 % Platelet Count 248 TH/MM3 Mean Platelet Volume 8.4 FL Neutrophils (%) (Auto) 53.4 % Lymphocytes (%) (Auto) 39.8 % Monocytes (%) (Auto) 6.3 % Eosinophils (%) (Auto) 0.1 % Basophils (%) (Auto) 0.4 % Neutrophils # (Auto) 5.5 TH/MM3 Lymphocytes # (Auto) 4.1 TH/MM3 Monocytes # (Auto) 0.7 TH/MM3 Eosinophils # (Auto) 0.0 TH/MM3 Basophils # (Auto) 0.0 TH/MM3 CBC Comment DIFF FINAL Differential Comment Urine Color Apurva Urine Turbidity HAZY Urine pH 5.0 Urine Specific Atkinson 1.013 Urine Protein NEG mg/dL Urine Glucose (UA) NEG mg/dL Urine Ketones NEG mg/dL Urine Occult Blood NEG Urine Nitrite POS Urine Bilirubin NEG Urine Urobilinogen 4.0 OR GREATER mg/dL Urine Leukocyte Esterase MOD Urine RBC 1 /hpf Urine WBC 31 /hpf Urine Squamous Epithelial Cells 3 /hpf Urine Bacteria MANY /hpf Urine Mucus FEW /lpf Microscopic Urinalysis Comment CULT NOT INDICATED Urine Opiates Screen NEG Urine Barbiturates Screen NEG Urine Amphetamines Screen NEG Urine Benzodiazepines Screen NEG Urine Cocaine Screen NEG Urine Cannabinoids Screen NEG Blood Urea Nitrogen 9 MG/DL Creatinine 1.07 MG/DL Random Glucose 140 MG/DL Total Protein 7.7 GM/DL Albumin 3.4 GM/DL Calcium Level 9.1 MG/DL Alkaline Phosphatase 176 U/L Aspartate Amino Transf (AST/SGOT) 17 U/L Alanine Aminotransferase (ALT/SGPT) 30 U/L Total Bilirubin 0.4 MG/DL Sodium Level 142 MEQ/L Potassium Level 3.5 MEQ/L Chloride Level 107 MEQ/L Carbon Dioxide Level 23.5 MEQ/L Anion Gap 12 MEQ/L Estimat Glomerular Filtration Rate 54 ML/MIN Thyroid Stimulating Hormone 3rd Gen 2.690 uIU/ML Mental Status Examination Appearance: Appropriate Consciousness: Alert Orientation: x4 Motor Activity: Normal gait Speech: Unremarkable Language: Adequate Fund of Knowledge: Adequate Attention and Concentration: Adequate Memory: Unremarkable Mood: Appropriate Affect: Flat Thought Process & Associations: Intact Thought Content: Appropriate Hallucination Type: Auditory Delusion Type: None Suicidal Ideation: No Suicidal Plan: No Suicidal Intention: No Homicidal Ideation: No Homicidal Plan: No Homicidal Intention: No Insight: Fair Judgment: Impulsive Assessment & Plan Problem List: (1) Schizoaffective disorder ICD Codes: F25.9 - Schizoaffective disorder Status: Acute Assessment & Plan: On psychiatric evaluation today the patient presents calm, cooperative, she seems to be in acute distress, reports having depressive symptoms and anxiety in the context of increase in volume, frequency, intensity and severity commanding type auditory hallucinations. The patient reports that she has been hearing chronic auditory hallucinations for a long time, she was diagnosed with schizophrenia of 22 years ago, she has been quite stable in the last 4 years, has been compliant with her medications and follow-ups, but she claims that the voices are extremely loud and annoying lately. The voices are telling her to kill herself, to walk to the ocean drawn her self in the sea. The patient denies suicidal and homicidal ideation, she denies visual hallucinations. Her thought process is logical, goal-directed, coherent and relevant. I could not elicit any prominent paranoia, delusions, ideas of reference, loosening of associations or thought insertion during this evaluation. This is a patient with psychiatric history of schizoaffective disorder, over 20 psychiatric hospitalizations, last hospitalization in 2013, 2 previous suicidal attempts, 1 of the suicide attempt was quite lethal without overdose of lithium the needed HD, she has been followed by [facility] team, and is stable with Invega Sustenna 234 mg monthly, at this moment we do not know when was the last dose given. I will start Invega 3 mg p.o. daily for psychosis. Try to get collateral information from fact team. I contacted already [facility], but they do not really have much additional information. Transfer patient to [address]. packing room worker intervention for collateral information , psychosocial assessment, individual and group therapies, to coordinate safe discharge. Patient will be admitted in Voluntary basis. Assessment & Plan Estimated LOS: Ryan Balderas MD Oct 01, 2017 13:17
[2017-10-01] MEDS: PALIPERIDONE ER 3 MG TAB PO SCH (14:00)
[2017-10-01 17:48] VITALS: BP 131/71; PULSE 110; RESP 17; TEMP 97.7; O2SAT 91
[2017-10-01] MEDS: DOXEPIN HCL 50 MG CAP PO SCH (21:00)
[2017-10-01] MEDS: MELATONIN 5 MG TAB PO SCH (21:00)
[2017-10-01] MEDS: REMOVE OLD NICODERM (NICOTINE) PATCH T-DERMAL SCH (21:00)
[2017-10-01] MEDS: NITROFURANTOIN MONOHYD MACROCR 100 MG CAP PO SCH (21:00)
[2017-10-01] MEDS: OXYBUTYNIN CHLORIDE 5 MG TAB PO SCH (21:00)
[2017-10-02 06:25] VITALS: BP 122/71; PULSE 104; RESP 18; TEMP 97.8; O2SAT 93
[2017-10-02] MEDS ORDERED: MULT-65 PO (07:52)
[2017-10-02] MEDS ORDERED: META48.53 PO (07:52)
[2017-10-02] MEDS ORDERED: FLEE5TAB PO (07:52)
[2017-10-02] MEDS: OXYBUTYNIN CHLORIDE 5 MG TAB PO SCH ×2 (08:02→21:00)
[2017-10-02] MEDS: NITROFURANTOIN MONOHYD MACROCR 100 MG CAP PO SCH ×2 (08:02→21:00)
[2017-10-02] MEDS: DOCUSATE SODIUM 100 MG CAP PO SCH (08:02)
[2017-10-02] MEDS: ATORVASTATIN 20 MG TAB PO SCH (08:02)
[2017-10-02] MEDS: NICOTINE 21 MG/24 HR PATCH T-DERMAL SCH (08:03)
[2017-10-02] MEDS: PALIPERIDONE ER 3 MG TAB PO SCH ×2 (08:03→11:41)
[2017-10-02 15:20] LABS: BICARBONATE 22.1 MEQ/L (21.0-32.0); BLOOD UREA NITROGEN 11 MG/DL (7-18); CALCIUM 9.2 MG/DL (8.5-10.1); CHLORIDE 109 MEQ/L (98-107); CHOLESTEROL 135 MG/DL (120-200); CREATININE 0.95 MG/DL (0.50-1.00); GLOMERULAR FILTRATION RATE 62 ML/MIN (>89); GLUCOSE,RANDOM 121 MG/DL (74-106); SODIUM (NA) 143 MEQ/L (136-145); TRIGLYCERIDES 245 MG/DL (42-150)
[2017-10-02 15:22] LABS: CHOLESTEROL/ HDL RATIO 3.34 RATIO; HDL CHOLESTEROL 40.4 MG/DL (40.0-60.0); LDL CHOLESTEROL 46 MG/DL (0-99)
[2017-10-02 18:05] VITALS: BP 117/60; PULSE 110; RESP 18; TEMP 98.3; O2SAT 93
[2017-10-02] MEDS: REMOVE OLD NICODERM (NICOTINE) PATCH T-DERMAL SCH (21:00)
[2017-10-02] MEDS: MELATONIN 5 MG TAB PO SCH (21:00)
[2017-10-02] MEDS: DOXEPIN HCL 50 MG CAP PO SCH (21:00)
[2017-10-03 05:11] VITALS: BP 118/72; PULSE 100; RESP 17; TEMP 97.8; O2SAT 93
[2017-10-03] MEDS: DOCUSATE SODIUM 100 MG CAP PO SCH (08:21)
[2017-10-03] MEDS: NITROFURANTOIN MONOHYD MACROCR 100 MG CAP PO SCH ×2 (08:21→20:44)
[2017-10-03] MEDS: PALIPERIDONE ER 3 MG TAB PO SCH (08:21)
[2017-10-03] MEDS: ATORVASTATIN 20 MG TAB PO SCH (08:21)
[2017-10-03] MEDS: NICOTINE 21 MG/24 HR PATCH T-DERMAL SCH (08:22)
[2017-10-03] MEDS: OXYBUTYNIN CHLORIDE 5 MG TAB PO SCH ×2 (08:22→20:44)
[2017-10-03 16:09] LABS: HEMOGLOBIN A1C 6.6 % (4.3-6.0)
[2017-10-03 18:00] VITALS: BP 106/64; PULSE 120; RESP 18; TEMP 98; O2SAT 95
--- NOTE | 2017-10-03 20:37 | HHI.PYPN ---
Subjective Remarks Reviewed electronic medical records and discussed case with staff. Nurse reports patient filled out and are OR today. She is requesting discharge. Follow-up conducted in patient's room. Patient found lying in the bed sleeping. She woke to verbal stimuli. She reports that she slept well last night and her appetite has been good. She denies suicidal ideation at this time. When asked to change she reports the "voices stopped". Of note staff report that patient's friend from her facility is inpatient downstairs and they believe that they felt they could be roommates at this facility as well. This may have something to do with the sudden improvement in patient's condition. Mental Status Examination Appearance: Appropriate Consciousness: Alert Orientation: x4 Motor Activity: Normal gait Speech: Unremarkable Language: Adequate Fund of Knowledge: Adequate Attention and Concentration: Adequate Memory: Unremarkable Mood: Appropriate Affect: Flat Thought Process & Associations: Intact Thought Content: Appropriate Hallucination Type: Auditory Delusion Type: None Suicidal Ideation: No Suicidal Plan: No Suicidal Intention: No Homicidal Ideation: No Homicidal Plan: No Homicidal Intention: No Insight: Fair Judgment: Impulsive Results Vitals/IOs Vital Signs Date Time Temp Pulse Resp B/P (MAP) Pulse Ox O2 Delivery O2 Flow Rate FiO2 10/03/17 18:00 98.0 120 18 106/64 (78) 95 10/01/17 04:12 Room Air Intake and Output 10/03/17 10/03/17 10/04/17 08:00 16:00 00:00 Intake Total 360 ml 1080 ml 240 ml Balance 360 ml 1080 ml 240 ml Assessment & Plan Problem List: (1) Schizoaffective disorder ICD Codes: F25.9 - Schizoaffective disorder Status: Acute Assessment & Plan Estimated LOS: Patient has filled out and our ROR form. Will reevaluate tomorrow and if she continues to report improved condition will discharge. Days Justification for Cont. Inpt. Moving this patient to a lower level of care may result in decompensation. She reports improvement however she is only been here for 1 day. Will reevaluate in the morning. Joanne Nicole Oct 03, 2017 20:37
[2017-10-03] MEDS: DOXEPIN HCL 50 MG CAP PO SCH (20:44)
[2017-10-03] MEDS: MELATONIN 5 MG TAB PO SCH (20:44)
[2017-10-03] MEDS: REMOVE OLD NICODERM (NICOTINE) PATCH T-DERMAL SCH (20:45)
[2017-10-04 05:41] VITALS: BP 114/58; PULSE 112; RESP 15; TEMP 98.1; O2SAT 98
[2017-10-04] MEDS: ATORVASTATIN 20 MG TAB PO SCH (08:54)
[2017-10-04] MEDS: OXYBUTYNIN CHLORIDE 5 MG TAB PO SCH (08:54)
[2017-10-04] MEDS: NITROFURANTOIN MONOHYD MACROCR 100 MG CAP PO SCH (08:55)
[2017-10-04] MEDS: PALIPERIDONE ER 3 MG TAB PO SCH (08:55)
[2017-10-04] MEDS: DOCUSATE SODIUM 100 MG CAP PO SCH (08:55)
[2017-10-04] MEDS: NICOTINE 21 MG/24 HR PATCH T-DERMAL SCH (09:00)
[2017-10-04] MEDS ORDERED: PALIPERIDONE PALMITATE 234 MG/1.5 ML SYRINGE IM ONE (11:00)
--- NOTE | 2017-10-04 13:18 | HHI.DS ---
Psychiatry Discharge Summary Inpatient Psychiatric care?: Yes Advance Directive: No Reason Not Provided: Not interested in having one Mental Health AdvanceDirective: No Health Care Proxy: No Admission Admission Date Oct 01, 2017 at 12:57 Admission Diagnosis: (1) Schizoaffective disorder ICD Code: F25.9 - Schizoaffective disorder Brief History The patient is 52-year-old woman, single, domiciled in [facility], unemployed, supported by [facility], with psychiatric history of schizoaffective disorder, bipolar type, multiple psychiatric hospitalizations, last hospitalization was here at [place] in 2013, documentation review, outpatient care with Fact team, she is on Invega Sustenna 234 mg, date of last dose unknown , doxepin 100 mg at bedtime, melatonin 1 mg, 2 previous suicidal attempts 1 of them with a little lithium overdose that needed hemodialysis, no significant medical history, who presents under Blake act initiated by the [employer]. According to her paperwork the patient told someone at her assisted -living living facility that she wants to drowned in the ocean. She has been feeling this way for the past several days. She reports that she hears voices which tell her to kill herself. Symptoms are moderate, aggravated by auditory hallucinations with no relieving factors. She reports that she did burn her hand with cigarettes over the past few days but denies doing anything else to hurt herself. Her last tetanus vaccination is unknown. She denies any drug or alcohol use. She has no other complaints at this time. Collateral information from [place] [id number] , was obtained. On my psychiatric evaluation I find a patient is calm, cooperative and who seems to be quite distressed. She says that she decided to come to the ER because for the last 2-3 days he has been hearing voices that has been increasing in intensity, severity, volume and frequency. She states that the voices are now very loud in her head "telling me to kill myself, to walk to the ocean and drawn myself". She says that she does not want to , she says that she was doing absolutely fine. She says that she was diagnosed with mental illness 22 years ago, she has been hospitalized over 20 times, but for the first time she is in a place that she like, with a medication regimen that is helping her, with the doctor "that is nice", "I was doing okay for the last years", but for no reason the voices returned. The patient reports that the voices are so loud that she "wanted to to put something in my Ears". She reports symptoms of depression, sadness, irritability, also anxiety in the context of the perceptual disturbances, but denies anhedonia, denies hopelessness, denies helplessness, denies worthlessness, denies suicidal and homicidal ideation, she denies visual and auditory hallucinations. The patient has a logical, coherent and relevant thought process, no paranoia, no loosening of associations, no ann, no disorganized behavior or speech are present during my evaluation. The patient denies the use of illegal drugs or alcohol. Tobacco Use In Past 30 Days: 5 or More Cigarettes/Day Alcohol Use: Never Hospital Course Patient was admitted to a locked psychiatric unit. Safety precautions were maintained throughout the stay. Patient was followed daily by a psychiatric provider and a spring encaser. Staff reports that the patient revealed her friend from the facility had come for admission and the patient expressed hopes in [place] that she could be "roommates" with her. When it was made clear that they would not be sharing a room, the patient filled out an ROR. Upon examination today, the patient is awake, alert and oriented. She is observed pacing the halls. She is denying SI, HI, auditory or visual hallucinations. Her mood is good and her affect is euthymic. When asked what had changed, she states "the voices stopped". She is requesting discharge back to her SNF. She does not appear to be an imminent danger to herself or others. She no longer meets inpatient criteria. She was administered her scheduled 234 mg Invega Sustenna dosage prior to being discharged. She has been counseled to return should her condition worsen. Results Blood Pressure 114 / 58 Vital Signs Date Time Temp Pulse Resp B/P (MAP) Pulse Ox O2 Delivery O2 Flow Rate FiO2 10/04/17 05:41 98.1 112 15 114/58 (76) 98 10/01/17 04:12 Room Air Laboratory Tests Test 10/02/17 13:41 Random Glucose 121 MG/DL (74-106) Chloride Level 109 MEQ/L (98-107) Estimat Glomerular Filtration Rate 62 ML/MIN (>89) Hemoglobin A1c 6.6 % (4.3-6.0) Triglycerides Level 245 MG/DL (42-150) Laboratory Results Test 10/02/17 13:41 Cholesterol Level 135 MG/DL (120-200) HDL Cholesterol 40.4 MG/DL (40.0-60.0) Hemoglobin A1c 6.6 % (4.3-6.0) LDL Cholesterol 46 MG/DL (0-99) Triglycerides Level 245 MG/DL (42-150) Summary of Procedures N/A Pending results at discharge: No Medications # of Antipsychotic meds at D/C: 1 Approp Antipsych med options 1 - Minimum of three failed multiple trials of monotherapy. 2 - Documented plan to taper to monotherapy due to previous use of multiple meds OR cross-taper in progress at D/C. 3 - Documentation of augmentation of Clozapine. 4 - Justification other than those listed in allowable values 1-3, document here : Discharge Discharge Date: Oct 04, 2017 Discharge Diagnosis: (1) Schizoaffective disorder ICD Code: F25.9 - Schizoaffective disorder Status: Acute Pt Condition on Discharge: Stable Discharge Disposition: Disch w/ Home Health Serv Discharge Instructions Diet Instructions: As Tolerated, No Restrictions Activities you can perform: Regular-No Restrictions Scheduled Appointment: Paul Santacruz Appointment Date: Oct 06, 2017 Discharge Time <= 30 minutes Mental Status Examination Appearance: Appropriate Consciousness: Alert Orientation: x4 Motor Activity: Normal gait Speech: Unremarkable Language: Adequate Fund of Knowledge: Adequate Attention and Concentration: Adequate Memory: Unremarkable Mood: Appropriate Affect: Flat Thought Process & Associations: Intact Thought Content: Appropriate Hallucination Type: Auditory Delusion Type: None Suicidal Ideation: No Suicidal Plan: No Suicidal Intention: No Homicidal Ideation: No Homicidal Plan: No Homicidal Intention: No Insight: Fair Judgment: Impulsive Discharge/Advance Care Plan Health Problems: (1) Schizoaffective disorder Goals to promote your health * To prevent worsening of your condition and complications * To maintain your health at the optimal level Directions to meet your goals Take your medications as prescribed Follow your dietary instruction Follow activity as directed Keep your appointments as scheduled Take your immunizations and boosters as scheduled If your symptoms worsen call your PCP, if no PCP go to Urgent Care Center or Emergency Room For 08/11 questions related to your inpatient stay or results of tests pending at discharge, please contact Dr. Joanne Nicole at Smoking is Dangerous to Your Health. Avoid second hand smoking Joanne Nicole Oct 04, 2017 13:18
--- NOTE | 2017-10-04 16:43 | HHI.PYPN ---
Subjective Remarks This is a late entry for October 02, 2017. Patient was seen today for psychiatric reevaluation. Case was discussed with nursing charge. The patient is calm her today, in a better spirit than yesterday. She reports that her voice is have decreased significantly today. She denies suicidal and homicidal ideation, she denies visual and auditory hallucinations. Oriented 3. Compliant with medications Review of Systems Except as stated in HPI: all other systems reviewed are Neg Mental Status Examination Appearance: Appropriate Consciousness: Alert Orientation: x4 Motor Activity: Normal gait Speech: Unremarkable Language: Adequate Fund of Knowledge: Adequate Attention and Concentration: Adequate Memory: Unremarkable Mood: Appropriate Affect: Flat Thought Process & Associations: Intact Thought Content: Appropriate Hallucination Type: Auditory Delusion Type: None Suicidal Ideation: No Suicidal Plan: No Suicidal Intention: No Homicidal Ideation: No Homicidal Plan: No Homicidal Intention: No Insight: Fair Judgment: Impulsive Results Vitals/IOs Vital Signs Date Time Temp Pulse Resp B/P (MAP) Pulse Ox O2 Delivery O2 Flow Rate FiO2 10/04/17 05:41 98.1 112 15 114/58 (76) 98 10/01/17 04:12 Room Air Intake and Output 10/04/17 10/04/17 10/04/17 07:59 15:59 23:59 Intake Total 1200 ml Balance 1200 ml Assessment & Plan Problem List: (1) Schizoaffective disorder ICD Codes: F25.9 - Schizoaffective disorder Status: Acute Assessment & Plan: Continue current psychotropic regimen. Brief supportive psychotherapy provided. Assessment & Plan Estimated LOS: days Justification for Cont. Inpt. Patient is to continue psychiatric hospitalization for stabilization. Ryan Jones MD Oct 04, 2017 16:43
== END 2017-10-04 14:15 | DRG 885 ==
LOC: NEPJ 19:05 → NEDA 10-01 12:57 → H4EA 10-01 14:55
PROVIDERS: ADMIT Student in an Organized Health Care Education/Training Program; ATTEND Student in an Organized Health Care Education/Training Program
DX: F25.0 Schizoaffective disorder, bipolar type (principal); F41.9 Anxiety disorder, unspecified; F17.210 Nicotine dependence, cigarettes, uncomplicated; Z91.5 Personal history of self-harm
CPT/HCPCS: 80048; 80053; 80061; 80307; 81001; 83036; 84443; 84703; 85025; 90471; 90714; J2426